=== PATIENT | female | born 1950 | race Caucasian/White ===

== ENCOUNTER 2018-11-17 09:57 | Inpatient (IN) | payer MEDICARE, MEDICAID ==
[2018-11-09 11:52] LABS: BASOPHILS % (AUTO) 0.5 % (0-1); EOSINOPHILS # (AUTO) 0.2 X10'3 (0-0.9); EOSINOPHILS % (AUTO) 3.1 % (0-6); HEMATOCRIT 42.5 % (35.0-45.0); HEMOGLOBIN 14.4 g/dl (12.0-16.0); LYMPHOCYTES # (AUTO) 2.3 X10'3 (1.1-4.8); LYMPHOCYTES % (AUTO) 35.9 % (21-51); MEAN CORPUSCULAR HEMOGLOBIN 31.1 PG (27.0-31.0); MEAN CORPUSCULAR VOLUME 91.5 FL (78-98); MEAN PLATELET VOLUME 8.2 FL (7.4-10.4); MONOCYTES # (AUTO) 0.4 X10'3 (0-0.9); MONOCYTES % (AUTO) 6.6 % (2-12); NEUTROPHILS # (AUTO) 3.4 X10'3 (1.8-7.7); NEUTROPHILS % (AUTO) 53.9 % (42-75); PLATELET COUNT 199 X10'3 (140-440); RED BLOOD COUNT 4.64 X10'6 (4.20-5.60); RED CELL DISTRIBUTION WIDTH 13.1 % (11.5-14.5); WHITE BLOOD COUNT 6.4 X10'3 (4.5-11.0)
[2018-11-09 11:53] LABS: ALANINE AMINOTRANSFERASE 17 U/L (12-78); ALBUMIN 3.2 G/DL (3.4-5.0); ALKALINE PHOSPHATASE 54 IU/L (46-116); ANION GAP 7 (8-16); ASPARTATE AMINO TRANSFERASE 17 U/L (10-37); BILIRUBIN,TOTAL 0.4 MG/DL (0.1-1.0); BLOOD UREA NITROGEN 14 MG/DL (7-18); BUN/CREATININE RATIO 17.5 (6.6-38.0); CALCIUM 8.5 MG/DL (8.5-10.1); CHLORIDE 110 MMOL/L (99-107); GLUCOSE 91 MG/DL (70-104); SODIUM 145 MMOL/L (135-145); TOTAL CARBON DIOXIDE 28.2 MMOL/L (24-32); TOTAL PROTEIN 6.4 G/DL (6.4-8.2); eGFR 72 ML/MIN
[2018-11-09 11:54] LABS: PARTIAL THROMBOPLASTIN TIME 25 SECONDS (22-32)
[~2018-11-17] VITALS: Ht 172.7 cm; Wt 100.0 kg
[2018-11-17] VITALS (11 sets, daily range): BP systolic 109–137; BP diastolic 54–86
[2018-11-17] MEDS ORDERED: nitroGLYCERIN 0.4mg SUBLingual tab SL PRN (10:20)
[2018-11-17] MEDS ORDERED: diphenhydrAMINE 25mg capsule PO PRN ×2 (10:20→15:05)
[2018-11-17] MEDS ORDERED: LORazepam 0.5 MG tablet PO PRN (10:20)
[2018-11-17] MEDS ORDERED: ESCI10TA PO (10:46)
[2018-11-17] MEDS ORDERED: CALC-331 PO (10:46)
[2018-11-17] MEDS ORDERED: CYA500T PO (10:46)
[2018-11-17] MEDS ORDERED: CITRUCEL PO (10:46)
[2018-11-17] MEDS ORDERED: MULT1TAB74 PO (10:46)
[2018-11-17] MEDS ORDERED: DENO60DI SQ (10:46)
[2018-11-17] MEDS ORDERED: UBID50TA3 PO (10:46)
[2018-11-17] MEDS ORDERED: HYDR-4353 PO (10:46)
[2018-11-17] MEDS ORDERED: ASPI-109 PO (10:46)
[2018-11-17] MEDS ORDERED: CHOL400C8 PO (10:46)
[2018-11-17] MEDS ORDERED: VITE1000C PO (10:46)
[2018-11-17] MEDS ORDERED: FERR-119 PO (10:46)
[2018-11-17] MEDS ORDERED: OMEP20CA10 PO (10:46)
[2018-11-17] MEDS: normal saline 1,000 ML IV SCH ×2 (11:30→20:20)
[2018-11-17] MEDS ORDERED: methylPREDNISolone sod succ 125mg/2ml vial IV ONE (11:35)
[2018-11-17] MEDS ORDERED: LIDOcaine 1% (10mg/ml)w/preservative injection 20ml MDV ONE (11:43)
[2018-11-17] MEDS ORDERED: fentaNYL/PF 50MCG/1 ML 2ML syringe ONE ×2 (11:43→12:24)
[2018-11-17] MEDS ORDERED: midazolam 2 mg/2 ml injection ONE (11:43)
[2018-11-17] MEDS ORDERED: iohexol 350MG/ML 100ml bottle IV ONE (11:43)
[2018-11-17] MEDS ORDERED: iohexol 350 MG/ML 50ML vial IV ONE (11:43)
[2018-11-17] MEDS ORDERED: proCHLORperazine 10 MG/2 ml inj ONE (12:14)
--- NOTE | 2018-11-17 13:21 | NUR ---
dr pollock ordered a sitter for Jaleesa Hernandez. Daughter is in room and will see that patient does not move her right leg or lift her head. I will remain in room while daughter is out if need be. Patient understands all but short term memory is very poor since stroke in 2016.
[2018-11-17] MEDS ORDERED: OXAZEpam 15mg capsule PO PRN (13:25)
[2018-11-17] MEDS ORDERED: ondansetron/PF 4mg/2ml inj IV PRN ×2 (13:25→15:05)
[2018-11-17] MEDS ORDERED: proCHLORperazine 10 MG/2 ml inj IV PRN (13:25)
[2018-11-17] MEDS ORDERED: HYDROcodone/acetaminophen 10/325mg tab PO PRN ×3 (13:25→15:00)
[2018-11-17] MEDS ORDERED: HYDROcodone/acetaminophen 5mg/325mg tablet PO PRN (13:30)
[2018-11-17] MEDS ORDERED: MESSAGE TO NURSING PO ONE ×5 (15:00→18:00)
[2018-11-17] MEDS ORDERED: NUT.TX.IMPAIRED DIGEST FXN (Ensure Clear) 237 ML PO ONE (15:00)
[2018-11-17] MEDS ORDERED: insulin glargine (Lantus) pen - multi-dose SQ PRN (15:00)
[2018-11-17] MEDS ORDERED: dextrose 50%-water 50ml dispensing syringe IV PRN (15:00)
--- NOTE | 2018-11-17 17:50 | NUR ---
I have received report from Riky JACINTO. The patient has not yet arrived to [facility] from Short Stay.
--- NOTE | 2018-11-17 17:59 | NUR ---
Problems reprioritized. Patient report given, questions answered & plan of care reviewed with MASOUD JIMENEZ [facility].
--- NOTE | 2018-11-17 18:00 | NUR ---
PATIENT TRANSFERRED TO [facility] VIA GURNEY AND MONITOR.
--- NOTE | 2018-11-17 18:24 | NUR ---
Problems reprioritized. Patient report given, questions answered & plan of care reviewed with Rudi RN.
[2018-11-17 18:34] LABS: HEMATOCRIT 43.8 % (35.0-45.0); HEMOGLOBIN 14.8 g/dl (12.0-16.0); MEAN CORPUSCULAR HEMOGLOBIN 30.8 PG (27.0-31.0); MEAN CORPUSCULAR HGB CONC 33.7 g/dL (33.0-36.5); MEAN CORPUSCULAR VOLUME 91.3 FL (78-98); PLATELET COUNT 194 X10'3 (140-440); RED CELL DISTRIBUTION WIDTH 13.3 % (11.5-14.5); WHITE BLOOD COUNT 7.9 X10'3 (4.5-11.0)
[2018-11-17 18:43] LABS: HEMOGLOBIN A1C 5.5 % (4.5-6.2)
[2018-11-17 18:45] LABS: ANION GAP 10 (8-16); BLOOD UREA NITROGEN 13 MG/DL (7-18); BUN/CREATININE RATIO 16.3 (6.6-38.0); CALCIUM 8.5 MG/DL (8.5-10.1); CHLORIDE 108 MMOL/L (99-107); GLUCOSE 182 MG/DL (70-104); POTASSIUM 3.8 MMOL/L (3.5-5.1); SODIUM 140 MMOL/L (135-145); TOTAL CARBON DIOXIDE 21.9 MMOL/L (24-32); eGFR 72 ML/MIN
[2018-11-17 18:48] LABS: PARTIAL THROMBOPLASTIN TIME 25 SECONDS (22-32)
[2018-11-17] MEDS: pantoprazole 40mg Tablet.DR PO SCH (19:57)
[2018-11-17] MEDS: metoprolol tartrate 12.5mg (1/2 tablet) PO SCH (20:00)
[2018-11-17] MEDS ORDERED: non-formulary drug (Omeprazole 1 CAP) PO SCH (20:00)
[2018-11-17 22:10] LABS: ABG BASE EXCESS -3.2 mmol/L (-2.0-3.0); ABG HCO3 21.2 mmol/L (22.0-26.0); ABG OXYGEN SATURATION 91.3 % (95-98); ABG PCO2 (T) 36.4 mmHg (32.0-45.0); ABG PH (T) 7.383 (7.350-7.450); ABG PO2 (T) 61.2 mmHg (83-108); ALLEN'S TEST Positive; FCOHb 0.9 % (0.5-1.5); FMetHb 0.2 % (0.3-1.12); FO2Hb 90.3 % (94-100); RESPIRATORY RATE (OBSERVED) 16 b/min; TOTAL HEMOGLOBIN 15.2 G/dl (12.0-16.0)
[2018-11-18] VITALS (17 sets, daily range): BP systolic 100–152; BP diastolic 52–82
[2018-11-18 04:03] LABS: BASOPHILS % (AUTO) 0 % (0-1); EOSINOPHILS % (AUTO) 0 % (0-6); HEMATOCRIT 42.8 % (35.0-45.0); HEMOGLOBIN 14.4 g/dl (12.0-16.0); LYMPHOCYTES # (AUTO) 1.6 X10'3 (1.1-4.8); LYMPHOCYTES % (AUTO) 10.2 % (21-51); MEAN CORPUSCULAR HEMOGLOBIN 30.6 PG (27.0-31.0); MEAN CORPUSCULAR HGB CONC 33.8 g/dL (33.0-36.5); MEAN CORPUSCULAR VOLUME 90.6 FL (78-98); MONOCYTES # (AUTO) 0.9 X10'3 (0-0.9); MONOCYTES % (AUTO) 5.5 % (2-12); NEUTROPHILS % (AUTO) 84.3 % (42-75); PLATELET COUNT 186 X10'3 (140-440); RED BLOOD COUNT 4.73 X10'6 (4.20-5.60); RED CELL DISTRIBUTION WIDTH 13.1 % (11.5-14.5); WHITE BLOOD COUNT 15.4 X10'3 (4.5-11.0)
[2018-11-18] MEDS: mupirocin 2% nasal ointment 1gm UD NS SCH ×3 (04:07→20:10)
[2018-11-18 04:20] LABS: ANION GAP 9 (8-16); BLOOD UREA NITROGEN 15 MG/DL (7-18); BUN/CREATININE RATIO 25.9 (6.6-38.0); CALCIUM 8.6 MG/DL (8.5-10.1); CHLORIDE 109 MMOL/L (99-107); CREATININE 0.58 MG/DL (0.40-0.90); GLUCOSE 106 MG/DL (70-104); POTASSIUM 3.7 MMOL/L (3.5-5.1); SODIUM 140 MMOL/L (135-145); TOTAL CARBON DIOXIDE 21.8 MMOL/L (24-32); eGFR > 90 ML/MIN
[2018-11-18] MEDS ORDERED: gabapentin 400mg capsule PO ONE (06:00)
[2018-11-18] MEDS: insulin regular, human 100 UNIT in normal saline 100ml IV soln 100 ML IV SCH ×2 (06:00)
[2018-11-18] MEDS ORDERED: vancomycin/NS 1 GM ADD-VANTAGE 250 ML IV ONE (06:00)
[2018-11-18] MEDS ORDERED: cefazolin/dext.iso 2gm/50ml 50 ML IV ONE (06:00)
--- NOTE | 2018-11-18 06:00 | NUR ---
Patient in room MED 307. I have received report from Rudi Calzada RN and had the opportunity to ask questions and assume patient care.
[2018-11-18] MEDS ORDERED: ROPIVAcaine 0.5% (5mg/ml) 30ml vial ONE (07:54)
[2018-11-18] MEDS ORDERED: acetaminophen 1,000mg/100ml IV 100 ML IV ONE (07:54)
[2018-11-18] MEDS: pantoprazole 40mg Tablet.DR PO SCH (08:00)
[2018-11-18] MEDS ORDERED: heparin 10,000 units/1 ML INJ ONE ×2 (08:00)
[2018-11-18] MEDS ORDERED: LORazepam 2 mg/ml vial IV ONE (08:00)
[2018-11-18] MEDS ORDERED: aminocaproic acid 250 MG/1 ML inj. ONE ×2 (08:00→09:56)
[2018-11-18] MEDS ORDERED: non-formulary drug (Multivitamins 1 TAB) PO SCH (08:00)
[2018-11-18] MEDS: metoprolol tartrate 12.5mg (1/2 tablet) PO SCH ×2 (08:00→08:33)
[2018-11-18] MEDS ORDERED: phenylephrine 10mg/ml inj. ONE (08:00)
[2018-11-18] MEDS ORDERED: citalopram 20mg tablet PO SCH ×2 (08:00)
[2018-11-18] MEDS: multivitamins, therapeutics tablet PO SCH (08:00)
[2018-11-18] MEDS ORDERED: potassium Cl 2 mEq/ml inj IV ONE (08:00)
[2018-11-18] MEDS ORDERED: famotidine 20mg tablet PO ONE (08:00)
[2018-11-18] MEDS ORDERED: LIDOcaine 2% (20 mg/ml) 5ml cardiac syringe ONE (08:00)
[2018-11-18] MEDS ORDERED: sodium bicarbonate (8.4%) 1 mEq/ml syringe ONE (08:00)
[2018-11-18] MEDS: aripiprazole 5mg tablet PO SCH (08:00)
[2018-11-18] MEDS ORDERED: calcium chloride 100 MG/1 ML inj IV ONE (08:00)
[2018-11-18] MEDS ORDERED: magnesium 1 GM/2 ML inj ONE (08:00)
[2018-11-18] MEDS ORDERED: papaverine 30 mg/ml 2ml inj. ONE (08:00)
[2018-11-18] MEDS ORDERED: methylPREDNISolone sod succ 1000mg vial ONE (08:00)
[2018-11-18] MEDS ORDERED: heparin 1,000 units/ml 10ml inj ONE (08:00)
[2018-11-18] MEDS ORDERED: albumin (human) 25% 100 ML IV solution IV ONE (08:00)
[2018-11-18] MEDS ORDERED: aspirin 325mg tablet PO SCH (08:30)
[2018-11-18] MEDS ORDERED: propofol inj 20 ML IV ONE (09:12)
[2018-11-18] MEDS ORDERED: midazolam 2 mg/2 ml injection ONE ×2 (09:12)
[2018-11-18] MEDS ORDERED: SUFENTANIL CITRATE 50 MCG/ML 2ml ampule IV ONE (09:12)
[2018-11-18] MEDS ORDERED: pancuronium br 1mg/ml inj IV ONE (09:13)
--- NOTE | 2018-11-18 09:37 | NUR ---
Pt. heading to OR.
[2018-11-18] MEDS ORDERED: [UNRECOGNIZED DRUG - OTHER] IV ONE (09:56)
[2018-11-18] MEDS ORDERED: sevoflurane 250ml liquid IH ONE (09:56)
[2018-11-18] MEDS ORDERED: LIDOcaine 1%/PF 5ML 10 MG/ML VIAL ONE (09:56)
[2018-11-18] MEDS ORDERED: nitroGLYCERIN in D5W 50mg/250ml (Tridil) infusion IV ONE (09:56)
[2018-11-18] MEDS ORDERED: protamine sulf. 10mg/ml inj. IV ONE (09:56)
[2018-11-18 10:26] LABS: ABG BASE EXCESS -4.8 mmol/L (-2.0-3.0); ABG HCO3 21.5 mmol/L (22.0-26.0); ABG OXYGEN SATURATION 99.5 % (95-98); ABG PCO2 44.1 mmHg (35.0-45.0); ABG PH 7.305 (7.350-7.450); ABG PO2 294.9 mmHg (60.0-100.0); CL (ABG) 109 mmol/L (99-107); FMetHb 0.3 % (0.3-1.12); FO2Hb 98.2 % (94-100); GLUCOSE (ABG) 107 mg/dl (70-105); K (ABG) 3.7 mmol/L (3.3-5.1); NA (ABG) 138 mmol/L (135-145); TOTAL HEMOGLOBIN 14.9 G/dl (12.0-16.0)
[2018-11-18] MEDS ORDERED: ePHEDrine 50MG/ML INJ. ONE (10:30)
[2018-11-18] MEDS ORDERED: heparin 10,000 units/1 ML INJ IR ONE (10:48)
[2018-11-18] MEDS ORDERED: papaverine 30 mg/ml 2ml inj. IA ONE (10:49)
[2018-11-18 11:46] LABS: ABG BASE EXCESS -4.9 mmol/L (-2.0-3.0); ABG OXYGEN SATURATION 99.4 % (95-98); ABG PCO2 31.1 mmHg (35.0-45.0); ABG PH 7.403 (7.350-7.450); ABG PO2 499.1 mmHg (60.0-100.0); CL (ABG) 107 mmol/L (99-107); FCOHb 0.3 % (0.5-1.5); FMetHb 0.4 % (0.3-1.12); FO2Hb 98.7 % (94-100); GLUCOSE (ABG) 108 mg/dl (70-105); IONIZED CA (ABG) 1.02 mmol/L (1.03-1.32); K (ABG) 5.6 mmol/L (3.3-5.1); NA (ABG) 132 mmol/L (135-145); TOTAL HEMOGLOBIN 11.2 G/dl (12.0-16.0)
[2018-11-18 12:06] LABS: ABG BASE EXCESS VENOUS -0.3 mmol/L; ABG HCO3 VENOUS 24.7 mmol/L; ABG PCO2 VENOUS 42.3 mmHg; ABG PO2 VENOUS 56.7 mmHg; CL (ABG) 107 mmol/L (99-107); FCOHb VENOUS 0.6 %; FHHb VENOUS 10.2 %; FMetHb VENOUS 0.3 %; FO2Hb VENOUS 88.9 %; GLUCOSE (ABG) 129 mg/dl (70-105); IONIZED CA (ABG) 0.96 mmol/L (1.03-1.32); K (ABG) 5.3 mmol/L (3.3-5.1); NA (ABG) 135 mmol/L (135-145); TOTAL HEMOGLOBIN 10.5 G/dl (12.0-16.0)
[2018-11-18 12:21] LABS: ABG BASE EXCESS 0.3 mmol/L (-2.0-3.0); ABG HCO3 24.8 mmol/L (22.0-26.0); ABG OXYGEN SATURATION 99.2 % (95-98); ABG PCO2 39.4 mmHg (35.0-45.0); ABG PH 7.416 (7.350-7.450); ABG PO2 469.4 mmHg (60.0-100.0); CL (ABG) 105 mmol/L (99-107); FCOHb 0.3 % (0.5-1.5); FMetHb 0.5 % (0.3-1.12); FO2Hb 98.4 % (94-100); GLUCOSE (ABG) 120 mg/dl (70-105); IONIZED CA (ABG) 1.34 mmol/L (1.03-1.32); K (ABG) 4.8 mmol/L (3.3-5.1); NA (ABG) 132 mmol/L (135-145); TOTAL HEMOGLOBIN 9.5 G/dl (12.0-16.0)
[2018-11-18] MEDS ORDERED: fentaNYL /PF 50mcg/ml 5ml ampule ONE (12:27)
[2018-11-18 12:40] LABS: ABG BASE EXCESS VENOUS 0.8 mmol/L; ABG HCO3 VENOUS 25.5 mmol/L; ABG PCO2 VENOUS 40.9 mmHg; ABG PO2 VENOUS 38.7 mmHg; CL (ABG) 105 mmol/L (99-107); FCOHb VENOUS 0.8 %; FHHb VENOUS 23.1 %; FMetHb VENOUS 0.5 %; FO2Hb VENOUS 75.6 %; GLUCOSE (ABG) 139 mg/dl (70-105); IONIZED CA (ABG) 1.16 mmol/L (1.03-1.32); K (ABG) 4.9 mmol/L (3.3-5.1); NA (ABG) 133 mmol/L (135-145); TOTAL HEMOGLOBIN 10.2 G/dl (12.0-16.0)
[2018-11-18] MEDS ORDERED: nitroGLYCERIN-Tridil 50MG/D5W 250 ML IV PRN (13:23)
[2018-11-18] MEDS ORDERED: DOPamine 400mg/D5W 250ml 250 ML IV PRN (13:23)
[2018-11-18] MEDS ORDERED: magnesium hydroxide 30ml (MOM) UD suspension PO PRN (13:25)
[2018-11-18] MEDS ORDERED: metoclopramide 5 mg/ml inj IV PRN (13:25)
[2018-11-18] MEDS ORDERED: ondansetron/PF 4mg/2ml inj IV PRN (13:25)
[2018-11-18] MEDS ORDERED: normal saline 250ml IV soln 250 ML IV PRN (13:25)
[2018-11-18] MEDS ORDERED: albumin (Human) 5% 250ml 250 ML IV PRN (13:25)
[2018-11-18] MEDS ORDERED: potassium Cl 20 mEq SR tablet PO PRN (13:25)
[2018-11-18] MEDS ORDERED: sodium phosphate inj. 15 MMOL in dextrose 5%-water 150 ML IV PRN (13:25)
[2018-11-18] MEDS ORDERED: dextrose 50%-water 50ml dispensing syringe IV PRN (13:25)
[2018-11-18] MEDS ORDERED: magnesium 4gm in 100ml NS 100 ML IV PRN (13:25)
[2018-11-18] MEDS ORDERED: magnesium 2GM in 50ml NS 50 ML IV PRN (13:25)
[2018-11-18] MEDS ORDERED: sodium phosphate inj. 30 MMOL in dextrose 5%-water 250 ML IV PRN (13:25)
[2018-11-18] MEDS ORDERED: morphine 4 MG/ML inj SYRINge IV PRN ×2 (13:25)
[2018-11-18] MEDS ORDERED: insulin regular, human inj. 100 UNITS in normal saline 100ml IV soln 100 ML IV SCH ×2 (13:25)
[2018-11-18] MEDS ORDERED: pantoprazole 40 MG vial IV ONE (13:25)
[2018-11-18] MEDS ORDERED: Neutra Phos packet PO PRN (13:25)
[2018-11-18] MEDS ORDERED: acetaminophen 325mg tablet PO PRN (13:25)
[2018-11-18] MEDS ORDERED: nitroPRUSSIDE SODIUM in NS 100 ML IV PRN (13:26)
--- NOTE | 2018-11-18 13:30 | NUR ---
Received to room 2008, accompanied by Shikha Sharma and surgical crew. Placed on ventilator, to cardiac cath technician, arterial line and PA line pressure monitored. Chest tubes to suction at 20 cm. Green cath to gravity drainage. Dressings are dry and intact. See assessment record. All vasoactive drugs are infusing via central line.
[2018-11-18 13:46] LABS: ABG BASE EXCESS -2.1 mmol/L (-2.0-3.0); ABG HCO3 23.1 mmol/L (22.0-26.0); ABG PCO2 (T) 41.1 mmHg (32.0-45.0); ABG PH (T) 7.367 (7.350-7.450); ABG PO2 (T) 67.1 mmHg (83-108); FCOHb 0.6 % (0.5-1.5); FMetHb 0.2 % (0.3-1.12); FO2Hb 92.3 % (94-100); MINUTE VOLUME 6 L/min; PEEP 5 cm H2O; RESPIRATORY RATE 10 b/min; RESPIRATORY RATE (OBSERVED) 10 b/min; TIDAL VOLUME 600 mL; TOTAL HEMOGLOBIN 14.5 G/dl (12.0-16.0)
[2018-11-18 14:07] LABS: BASOPHILS % (AUTO) 0 % (0-1); EOSINOPHILS # (AUTO) 0.1 X10'3 (0-0.9); EOSINOPHILS % (AUTO) 0.3 % (0-6); HEMATOCRIT 40.8 % (35.0-45.0); HEMOGLOBIN 13.7 g/dl (12.0-16.0); INR 1.2 INR; LYMPHOCYTES # (AUTO) 1.4 X10'3 (1.1-4.8); MEAN CORPUSCULAR HEMOGLOBIN 30.5 PG (27.0-31.0); MEAN CORPUSCULAR HGB CONC 33.7 g/dL (33.0-36.5); MEAN CORPUSCULAR VOLUME 90.7 FL (78-98); MONOCYTES # (AUTO) 1.1 X10'3 (0-0.9); MONOCYTES % (AUTO) 5.8 % (2-12); NEUTROPHILS # (AUTO) 16.8 X10'3 (1.8-7.7); NEUTROPHILS % (AUTO) 86.9 % (42-75); PARTIAL THROMBOPLASTIN TIME 26 SECONDS (22-32); PLATELET COUNT 145 X10'3 (140-440); RED CELL DISTRIBUTION WIDTH 13.3 % (11.5-14.5); WHITE BLOOD COUNT 19.3 X10'3 (4.5-11.0)
[2018-11-18] MEDS: sodium chloride 0.45% 1,000 ML IV SCH (14:07)
[2018-11-18 14:11] LABS: ALANINE AMINOTRANSFERASE 32 U/L (12-78); ALBUMIN 3.2 G/DL (3.4-5.0); ALBUMIN/GLOBULIN RATIO 1.7 (1.1-1.5); ALKALINE PHOSPHATASE 36 IU/L (46-116); ANION GAP 9 (8-16); ASPARTATE AMINO TRANSFERASE 48 U/L (10-37); BILIRUBIN,TOTAL 0.8 MG/DL (0.1-1.0); BLOOD UREA NITROGEN 11 MG/DL (7-18); CALCIUM 8.7 MG/DL (8.5-10.1); CHLORIDE 110 MMOL/L (99-107); CREATININE 0.61 MG/DL (0.40-0.90); GLUCOSE 143 MG/DL (70-104); MAGNESIUM 3.4 MG/DL (1.5-2.4); PHOSPHORUS 2.6 MG/DL (2.3-4.5); POTASSIUM 4.8 MMOL/L (3.5-5.1); SODIUM 143 MMOL/L (135-145); TOTAL CARBON DIOXIDE 23.6 MMOL/L (24-32); TOTAL PROTEIN 5.1 G/DL (6.4-8.2); eGFR > 90 ML/MIN
[2018-11-18 14:44] LABS: NEUTROPHILS % (MANUAL) 90 % (42-75); TOTAL CELLS COUNTED 100
[2018-11-18 14:45] LABS: LYMPHOCYTES % (MANUAL) 4 % (21-51); PLATELET ESTIMATE NORMAL
--- NOTE | 2018-11-18 15:40 | NUR ---
Nutrition consult: Pt s/p CABG x2, currently intubated. Will continue to follow and provide nutrition education s/p extubation prior to d/c once pt alert and oriented. Per diet office family requesting bernard Sascha for pt, will monitor appropriateness of ONS s/p extubation with diet advancement. Addendum: 11/18/18 at [address] Amended: Links added.
[2018-11-18] MEDS: ceFAZolin 1GM/D5W- ADD-VANTAGE 50 ML IV SCH ×2 (16:18→23:28)
[2018-11-18] MEDS: insulin Lispro (HumaLOG) vial - multi-dose SQ SCH (16:21)
--- NOTE | 2018-11-18 18:30 | NUR ---
Problems reprioritized. Patient report given, questions answered & plan of care reviewed with Princess JACINTO.
[2018-11-18] MEDS: docusate sod 100mg capsule PO SCH (20:00)
[2018-11-18] MEDS: vancomycin/NS 1 GM ADD-VANTAGE 250 ML IV SCH (20:10)
[2018-11-18] MEDS: gabapentin 300mg capsule PO SCH (20:24)
[2018-11-18 21:41] LABS: BASOPHILS % (AUTO) 0 % (0-1); EOSINOPHILS % (AUTO) 0 % (0-6); HEMATOCRIT 41.5 % (35.0-45.0); HEMOGLOBIN 13.8 g/dl (12.0-16.0); LYMPHOCYTES # (AUTO) 0.9 X10'3 (1.1-4.8); LYMPHOCYTES % (AUTO) 5.3 % (21-51); MEAN CORPUSCULAR HEMOGLOBIN 30.4 PG (27.0-31.0); MEAN CORPUSCULAR HGB CONC 33.2 g/dL (33.0-36.5); MEAN CORPUSCULAR VOLUME 91.6 FL (78-98); MEAN PLATELET VOLUME 8.2 FL (7.4-10.4); MONOCYTES # (AUTO) 0.8 X10'3 (0-0.9); MONOCYTES % (AUTO) 4.8 % (2-12); NEUTROPHILS # (AUTO) 15.5 X10'3 (1.8-7.7); NEUTROPHILS % (AUTO) 89.9 % (42-75); PLATELET COUNT 165 X10'3 (140-440); RED BLOOD COUNT 4.53 X10'6 (4.20-5.60); WHITE BLOOD COUNT 17.2 X10'3 (4.5-11.0)
[2018-11-18 21:44] LABS: ALBUMIN 3.2 G/DL (3.4-5.0); ANION GAP 11 (8-16); BLOOD UREA NITROGEN 15 MG/DL (7-18); BUN/CREATININE RATIO 17.4 (6.6-38.0); CALCIUM 7.8 MG/DL (8.5-10.1); CHLORIDE 112 MMOL/L (99-107); CREATININE 0.86 MG/DL (0.40-0.90); GLUCOSE 186 MG/DL (70-104); MAGNESIUM 2.7 MG/DL (1.5-2.4); PHOSPHORUS 2.8 MG/DL (2.3-4.5); POTASSIUM 3.9 MMOL/L (3.5-5.1); SODIUM 147 MMOL/L (135-145); TOTAL CARBON DIOXIDE 24.3 MMOL/L (24-32); eGFR 66 ML/MIN
[2018-11-18] MEDS: potassium Cl 20mEq/100mL bag 100 ML IV PRN (22:17)
--- NOTE | 2018-11-18 22:19 | NUR ---
1830..Patient in room CICU 2008. I have received report from Josesito JACINTO and had the opportunity to ask questions and assume patient care.
--- NOTE | 2018-11-18 22:20 | NUR ---
2000..Assessment as noted, medicated for nausea with Zofran as ordered with good effect.
--- NOTE | 2018-11-18 22:21 | NUR ---
2030..Medicated for pain with morphine as ordered, with good effect, no further nausea.
[2018-11-18 22:31] LABS: PLATELET ESTIMATE NORMAL; TOTAL CELLS COUNTED 100
[2018-11-19] VITALS (22 sets, daily range): BP systolic 98–144; BP diastolic 42–89
[2018-11-19] MEDS: potassium Cl 20mEq/100mL bag 100 ML IV PRN (00:07)
--- NOTE | 2018-11-19 00:46 | NUR ---
0000..Resting quietly, slowly weaning vent, no other changes noted.
[2018-11-19 02:17] LABS: BASOPHILS % (AUTO) 0 % (0-1); EOSINOPHILS % (AUTO) 0 % (0-6); HEMATOCRIT 41.8 % (35.0-45.0); HEMOGLOBIN 13.9 g/dl (12.0-16.0); LYMPHOCYTES # (AUTO) 0.9 X10'3 (1.1-4.8); LYMPHOCYTES % (AUTO) 5.3 % (21-51); MEAN CORPUSCULAR HEMOGLOBIN 30.5 PG (27.0-31.0); MEAN CORPUSCULAR HGB CONC 33.3 g/dL (33.0-36.5); MEAN CORPUSCULAR VOLUME 91.7 FL (78-98); MEAN PLATELET VOLUME 8.1 FL (7.4-10.4); MONOCYTES # (AUTO) 1.1 X10'3 (0-0.9); MONOCYTES % (AUTO) 6.2 % (2-12); NEUTROPHILS # (AUTO) 15.5 X10'3 (1.8-7.7); NEUTROPHILS % (AUTO) 88.5 % (42-75); PLATELET COUNT 146 X10'3 (140-440); RED BLOOD COUNT 4.57 X10'6 (4.20-5.60); RED CELL DISTRIBUTION WIDTH 13.3 % (11.5-14.5); WHITE BLOOD COUNT 17.5 X10'3 (4.5-11.0)
[2018-11-19 02:26] LABS: INR 1.1 INR; PARTIAL THROMBOPLASTIN TIME 23 SECONDS (22-32)
[2018-11-19 02:29] LABS: ALANINE AMINOTRANSFERASE 45 U/L (12-78); ALBUMIN 3.1 G/DL (3.4-5.0); ALBUMIN/GLOBULIN RATIO 1.3 (1.1-1.5); ALKALINE PHOSPHATASE 34 IU/L (46-116); ANION GAP 6 (8-16); ASPARTATE AMINO TRANSFERASE 49 U/L (10-37); BILIRUBIN,TOTAL 0.5 MG/DL (0.1-1.0); BLOOD UREA NITROGEN 17 MG/DL (7-18); BUN/CREATININE RATIO 26.2 (6.6-38.0); CALCIUM 7.8 MG/DL (8.5-10.1); CHLORIDE 113 MMOL/L (99-107); CREATININE 0.65 MG/DL (0.40-0.90); GLUCOSE 125 MG/DL (70-104); MAGNESIUM 2.6 MG/DL (1.5-2.4); PHOSPHORUS 1.8 MG/DL (2.3-4.5); SODIUM 144 MMOL/L (135-145); TOTAL CARBON DIOXIDE 25.3 MMOL/L (24-32); TOTAL PROTEIN 5.5 G/DL (6.4-8.2); eGFR > 90 ML/MIN
[2018-11-19 03:56] LABS: ABG BASE EXCESS -1.4 mmol/L (-2.0-3.0); ABG HCO3 22.5 mmol/L (22.0-26.0); ABG OXYGEN SATURATION 93.7 % (95-98); ABG PCO2 (T) 35.7 mmHg (32.0-45.0); ABG PH (T) 7.418 (7.350-7.450); ABG PO2 (T) 68.8 mmHg (83-108); FCOHb 0.3 % (0.5-1.5); FMetHb 0.2 % (0.3-1.12); FO2Hb 93.2 % (94-100); MINUTE VOLUME 8 L/min; PATIENT TEMPERATURE 37.2; PEEP 5 cm H2O; RESPIRATORY RATE (OBSERVED) 19 b/min; TOTAL HEMOGLOBIN 14.6 G/dl (12.0-16.0)
[2018-11-19] MEDS: HYDROcodone/acetaminophen 10/325mg tab PO PRN ×4 (04:09→17:34)
--- NOTE | 2018-11-19 04:18 | NUR ---
0415..Passed weaning parameters,extubated to nasal cannula 6l, no wheezing or stridor , tolerated. Complained of incisional pain 8\10, medicated with norco as per MD orders, no other changes noted.
--- NOTE | 2018-11-19 06:23 | NUR ---
2020..Problems reprioritized. Patient report given, questions answered & plan of care reviewed with Neida JACINTO.
--- NOTE | 2018-11-19 06:30 | NUR ---
Patient in room CICU 2008. I have received report from Princess Calzada RN and had the opportunity to ask questions and assume patient care.
[2018-11-19] MEDS: vancomycin/NS 1 GM ADD-VANTAGE 250 ML IV SCH ×2 (08:55→20:12)
[2018-11-19] MEDS: aspirin 325mg tablet, delayed-release (Ecotrin) PO SCH (08:55)
[2018-11-19] MEDS: ceFAZolin 1GM/D5W- ADD-VANTAGE 50 ML IV SCH ×2 (08:55→16:24)
[2018-11-19] MEDS: docusate sod 100mg capsule PO SCH ×2 (08:56→20:13)
[2018-11-19] MEDS: aripiprazole 5mg tablet PO SCH (08:56)
[2018-11-19] MEDS: gabapentin 300mg capsule PO SCH ×3 (08:56→20:12)
[2018-11-19] MEDS: atorvastatin 10mg tablet PO SCH (08:57)
[2018-11-19] MEDS: citalopram 20mg tablet PO SCH (08:57)
[2018-11-19] MEDS: insulin Lispro (HumaLOG) vial - multi-dose SQ SCH ×3 (09:00→18:00)
[2018-11-19] MEDS: metoprolol tartrate 12.5mg (1/2 tablet) PO SCH ×2 (09:07→20:13)
[2018-11-19] MEDS: multivitamins, therapeutics tablet PO SCH (09:09)
[2018-11-19] MEDS: mupirocin 2% nasal ointment 1gm UD NS SCH ×2 (11:00→20:12)
--- NOTE | 2018-11-19 11:35 | NUR ---
1115 Removed patient's swan-yamilka line and arterial line. Applied dressing per policy. Clean dressing applied aseptically to central line.
[2018-11-19] MEDS: insulin regular, human 100 UNIT in normal saline 100ml IV soln 100 ML IV SCH ×2 (15:20)
--- NOTE | 2018-11-19 18:26 | NUR ---
Problems reprioritized. Patient report given, questions answered & plan of care reviewed with Felicitas Ibarra RN.
--- NOTE | 2018-11-19 18:30 | NUR ---
Patient in room CICU 2008. I have received report and had the opportunity to ask questions and assume patient care.
--- NOTE | 2018-11-19 19:00 | NUR ---
pt becomes confused/forgetful at times. pt will wake up and pull on lines and gown. pt will also try to use her arms to push herself up i bed. pt needs many reminders to adhere to sternal precautions. will continue to monitor
[2018-11-20] VITALS (24 sets, daily range): BP systolic 87–158; BP diastolic 46–79
[2018-11-20] MEDS: ceFAZolin 1GM/D5W- ADD-VANTAGE 50 ML IV SCH (00:06)
[2018-11-20 03:42] LABS: BASOPHILS % (AUTO) 0 % (0-1); EOSINOPHILS % (AUTO) 0.1 % (0-6); HEMATOCRIT 37.4 % (35.0-45.0); HEMOGLOBIN 12.6 g/dl (12.0-16.0); LYMPHOCYTES # (AUTO) 2.8 X10'3 (1.1-4.8); LYMPHOCYTES % (AUTO) 13.8 % (21-51); MEAN CORPUSCULAR HEMOGLOBIN 30.9 PG (27.0-31.0); MEAN CORPUSCULAR HGB CONC 33.7 g/dL (33.0-36.5); MEAN CORPUSCULAR VOLUME 91.8 FL (78-98); MEAN PLATELET VOLUME 8.2 FL (7.4-10.4); MONOCYTES # (AUTO) 1.8 X10'3 (0-0.9); MONOCYTES % (AUTO) 8.7 % (2-12); NEUTROPHILS # (AUTO) 15.7 X10'3 (1.8-7.7); NEUTROPHILS % (AUTO) 77.4 % (42-75); PLATELET COUNT 112 X10'3 (140-440); RED BLOOD COUNT 4.07 X10'6 (4.20-5.60); RED CELL DISTRIBUTION WIDTH 13.4 % (11.5-14.5); WHITE BLOOD COUNT 20.3 X10'3 (4.5-11.0)
[2018-11-20 03:45] LABS: ALBUMIN 2.8 G/DL (3.4-5.0); ANION GAP 7 (8-16); BLOOD UREA NITROGEN 18 MG/DL (7-18); BUN/CREATININE RATIO 29.5 (6.6-38.0); CALCIUM 7.5 MG/DL (8.5-10.1); CHLORIDE 108 MMOL/L (99-107); CREATININE 0.61 MG/DL (0.40-0.90); GLUCOSE 122 MG/DL (70-104); MAGNESIUM 2.4 MG/DL (1.5-2.4); PHOSPHORUS 2.3 MG/DL (2.3-4.5); POTASSIUM 4.6 MMOL/L (3.5-5.1); SODIUM 140 MMOL/L (135-145); TOTAL CARBON DIOXIDE 25.4 MMOL/L (24-32); eGFR > 90 ML/MIN
--- NOTE | 2018-11-20 06:30 | NUR ---
Patient in room CICU 2008. I have received report from OPHELIA Polk and had the opportunity to ask questions and assume patient care.
[2018-11-20] MEDS: aspirin 325mg tablet, delayed-release (Ecotrin) PO SCH (08:34)
[2018-11-20] MEDS: docusate sod 100mg capsule PO SCH ×2 (08:34→19:27)
[2018-11-20] MEDS: mupirocin 2% nasal ointment 1gm UD NS SCH (08:34)
[2018-11-20] MEDS: citalopram 20mg tablet PO SCH (08:34)
[2018-11-20] MEDS: atorvastatin 10mg tablet PO SCH (08:35)
[2018-11-20] MEDS: metoprolol tartrate 12.5mg (1/2 tablet) PO SCH ×2 (08:35→19:27)
[2018-11-20] MEDS: multivitamins, therapeutics tablet PO SCH (08:35)
[2018-11-20] MEDS: aripiprazole 5mg tablet PO SCH (08:35)
[2018-11-20] MEDS: gabapentin 300mg capsule PO SCH ×2 (08:35→13:00)
[2018-11-20] MEDS: pantoprazole 40mg Tablet.DR PO SCH (08:35)
[2018-11-20] MEDS: HYDROcodone/acetaminophen 10/325mg tab PO PRN ×3 (08:37→19:31)
[2018-11-20] MEDS: insulin Lispro (HumaLOG) vial - multi-dose SQ SCH ×3 (09:00→18:00)
--- NOTE | 2018-11-20 09:00 | NUR ---
pt is awake and alert, forgetful at times, reorient easy. CTs removed by ARBEN Mcmahon. c/o discomfort, pain medication given for pain relief per MD order. OOB for meals. ambulate with PT x1. updated family on plan of care.
[2018-11-20] MEDS: sodium chloride 0.45% 1,000 ML IV SCH (13:23)
--- NOTE | 2018-11-20 18:20 | NUR ---
Patient in room CICU 2008. I have received report from OPHELIA Hobbs and had the opportunity to ask questions and assume patient care. Patient is resting at time of report, awakens easily, is alert and oriented, in no distress at this time. Patient has right CL that is saline locked and 18 ga PIV to left forearm saline locked. Green catheter in place. Patient reminded of using sternal precautions. Will continue to monitor.
--- NOTE | 2018-11-20 18:24 | NUR ---
Problems reprioritized. Patient report given, questions answered & plan of care reviewed with Ruby Kebede.
[2018-11-21] VITALS (21 sets, daily range): BP systolic 91–135; BP diastolic 31–70
[2018-11-21] MEDS: insulin regular, human 100 UNIT in normal saline 100ml IV soln 100 ML IV SCH ×2 (00:03)
[2018-11-21] MEDS: HYDROcodone/acetaminophen 10/325mg tab PO PRN ×5 (02:23→22:58)
--- NOTE | 2018-11-21 03:00 | NUR ---
[id number] Patient requires frequent reminders for using sternal precautions. Patient is impulsive and forgetful at times, reorients well. Patient pulled on dressing over central line while sleeping - dressing replaced. Patient continues to remove nasal cannula while sleeping with oxygen saturation decreasing to 89%. Patient reminded to keep her oxygen on. Will continue to monitor.
[2018-11-21 03:16] LABS: BASOPHILS % (AUTO) 0.1 % (0-1); EOSINOPHILS # (AUTO) 0.2 X10'3 (0-0.9); EOSINOPHILS % (AUTO) 1.7 % (0-6); HEMATOCRIT 34.4 % (35.0-45.0); HEMOGLOBIN 11.6 g/dl (12.0-16.0); LYMPHOCYTES # (AUTO) 2.8 X10'3 (1.1-4.8); LYMPHOCYTES % (AUTO) 21.5 % (21-51); MEAN CORPUSCULAR HEMOGLOBIN 31.2 PG (27.0-31.0); MEAN CORPUSCULAR HGB CONC 33.7 g/dL (33.0-36.5); MEAN CORPUSCULAR VOLUME 92.5 FL (78-98); MEAN PLATELET VOLUME 8.7 FL (7.4-10.4); MONOCYTES # (AUTO) 0.9 X10'3 (0-0.9); MONOCYTES % (AUTO) 6.8 % (2-12); NEUTROPHILS # (AUTO) 9.1 X10'3 (1.8-7.7); NEUTROPHILS % (AUTO) 69.9 % (42-75); PLATELET COUNT 95 X10'3 (140-440); RED BLOOD COUNT 3.71 X10'6 (4.20-5.60); RED CELL DISTRIBUTION WIDTH 13.3 % (11.5-14.5)
[2018-11-21 03:26] LABS: ALBUMIN 2.5 G/DL (3.4-5.0); ANION GAP 3 (8-16); BLOOD UREA NITROGEN 16 MG/DL (7-18); BUN/CREATININE RATIO 28.1 (6.6-38.0); CALCIUM 7.6 MG/DL (8.5-10.1); CHLORIDE 108 MMOL/L (99-107); CREATININE 0.57 MG/DL (0.40-0.90); GLUCOSE 97 MG/DL (70-104); MAGNESIUM 2.2 MG/DL (1.5-2.4); PHOSPHORUS 1.5 MG/DL (2.3-4.5); POTASSIUM 4.2 MMOL/L (3.5-5.1); SODIUM 139 MMOL/L (135-145); TOTAL CARBON DIOXIDE 27.7 MMOL/L (24-32); eGFR > 90 ML/MIN
[2018-11-21 05:11] LABS: ACTIVATED CLOTTING TIME 116 SEC (101-148)
[2018-11-21 05:11] LABS: ACT @ 1.70 U 232 SEC (193-297); ACT @ 2.84 U 304 SEC (260-420); BASELINE ACT 121 SEC (101-148)
--- NOTE | 2018-11-21 05:52 | NUR ---
Patient coughing, needing reminder to use her pillow for sternal precautions. Pillow placed on patients chest and had patient demonstrate sternal precautions. She was able to do them without issue when prompted. Will continue to monitor.
--- NOTE | 2018-11-21 06:28 | NUR ---
Problems reprioritized. Patient report given, questions answered & plan of care reviewed with OPHELIA Augustine.
--- NOTE | 2018-11-21 06:42 | NUR ---
Patient in room CICU 2008. I have received report from OPHELIA Kebede and had the opportunity to ask questions and assume patient care.
[2018-11-21] MEDS ORDERED: potassium Cl 20 mEq SR tablet PO PRN ×2 (07:05)
[2018-11-21] MEDS ORDERED: magnesium Cl slow-release 64mg tablet PO PRN (07:05)
[2018-11-21] MEDS ORDERED: magnesium 2GM in 50ml NS 50 ML IV PRN (07:05)
[2018-11-21] MEDS ORDERED: potassium Cl 40MEQ/NS 500ml 500 ML IV PRN ×2 (07:05)
[2018-11-21] MEDS ORDERED: magnesium 4gm in 100ml NS 100 ML IV PRN (07:05)
[2018-11-21] MEDS: metoprolol tartrate 12.5mg (1/2 tablet) PO SCH ×2 (07:46→20:57)
[2018-11-21] MEDS: multivitamins, therapeutics tablet PO SCH (07:47)
[2018-11-21] MEDS: aspirin 325mg tablet, delayed-release (Ecotrin) PO SCH (07:47)
[2018-11-21] MEDS: docusate sod 100mg capsule PO SCH ×2 (07:47→20:58)
[2018-11-21] MEDS: magnesium Cl slow-release 64mg tablet PO SCH ×3 (07:47→20:00)
[2018-11-21] MEDS: citalopram 20mg tablet PO SCH (07:47)
[2018-11-21] MEDS: atorvastatin 10mg tablet PO SCH (07:47)
[2018-11-21] MEDS: pantoprazole 40mg Tablet.DR PO SCH (07:48)
[2018-11-21] MEDS: aripiprazole 5mg tablet PO SCH (07:48)
[2018-11-21] MEDS: potassium Cl 20 mEq SR tablet PO SCH ×3 (07:49→20:00)
[2018-11-21] MEDS: K and/or MAG REPLACEMENT MC SCH (08:00)
--- NOTE | 2018-11-21 16:56 | NUR ---
Report called to OPHELIA Lozano
--- NOTE | 2018-11-21 17:28 | NUR ---
Transferred to room 315 via wheelchair, patient on director of cardiac rehabilitation, all belongings with patient. OPHELIA Lozano at bedside to help transfer patient to hospital bed.
--- NOTE | 2018-11-21 17:35 | NUR ---
Patient in room 315. I have received report from Fawn JACINTO and had the opportunity to ask questions and assume patient care. Patient arrived to room 315and transferred with 2 person assist from bed to wheelchair, oriented to room and call light.
[2018-11-21] MEDS: lactose-reduced food (Ensure Enlive) - 237ml bottle PO SCH ×2 (18:00→19:00)
--- NOTE | 2018-11-21 18:00 | NUR ---
Patient in room MED 315. I have received report from Marta JACINTO and had the opportunity to ask questions and assume patient care.
--- NOTE | 2018-11-21 18:21 | NUR ---
Problems reprioritized. Patient report given, questions answered & plan of care reviewed with Dee JACINTO.
[2018-11-22 02:00] VITALS: BP 96/42
[2018-11-22] MEDS: HYDROcodone/acetaminophen 10/325mg tab PO PRN ×2 (03:12→07:55)
[2018-11-22 05:56] LABS: BASOPHILS % (AUTO) 0.4 % (0-1); EOSINOPHILS # (AUTO) 0.3 X10'3 (0-0.9); EOSINOPHILS % (AUTO) 3.5 % (0-6); HEMATOCRIT 31.4 % (35.0-45.0); HEMOGLOBIN 10.8 g/dl (12.0-16.0); LYMPHOCYTES # (AUTO) 2.5 X10'3 (1.1-4.8); LYMPHOCYTES % (AUTO) 26.2 % (21-51); MEAN CORPUSCULAR HEMOGLOBIN 31.6 PG (27.0-31.0); MEAN CORPUSCULAR HGB CONC 34.6 g/dL (33.0-36.5); MEAN CORPUSCULAR VOLUME 91.5 FL (78-98); MEAN PLATELET VOLUME 8.5 FL (7.4-10.4); MONOCYTES # (AUTO) 0.5 X10'3 (0-0.9); MONOCYTES % (AUTO) 5.6 % (2-12); NEUTROPHILS # (AUTO) 6.1 X10'3 (1.8-7.7); NEUTROPHILS % (AUTO) 64.3 % (42-75); PLATELET COUNT 107 X10'3 (140-440); RED BLOOD COUNT 3.43 X10'6 (4.20-5.60); RED CELL DISTRIBUTION WIDTH 13.1 % (11.5-14.5); WHITE BLOOD COUNT 9.5 X10'3 (4.5-11.0)
--- NOTE | 2018-11-22 05:58 | NUR ---
Pt was noted to have some changes in her monitor, 12 lead EKG done per protocol. VSS. Labs were done as daily order. Report off to day shift.
[2018-11-22 06:00] VITALS: BP 104/41
[2018-11-22 06:00] LABS: ALBUMIN 2.4 G/DL (3.4-5.0); ANION GAP 6 (8-16); BLOOD UREA NITROGEN 13 MG/DL (7-18); BUN/CREATININE RATIO 20.6 (6.6-38.0); CALCIUM 8.3 MG/DL (8.5-10.1); CHLORIDE 108 MMOL/L (99-107); CREATININE 0.63 MG/DL (0.40-0.90); GLUCOSE 97 MG/DL (70-104); MAGNESIUM 2.2 MG/DL (1.5-2.4); POTASSIUM 3.6 MMOL/L (3.5-5.1); SODIUM 140 MMOL/L (135-145); TOTAL CARBON DIOXIDE 26.2 MMOL/L (24-32); eGFR > 90 ML/MIN
--- NOTE | 2018-11-22 06:27 | NUR ---
Problems reprioritized. Patient report given, questions answered & plan of care reviewed with Lilia JACINTO.
[2018-11-22] MEDS ORDERED: magnesium citrate 296ml oral solution PO ONE (06:50)
[2018-11-22] MEDS: potassium Cl 20 mEq SR tablet PO SCH (07:45)
[2018-11-22] MEDS: docusate sod 100mg capsule PO SCH (07:45)
[2018-11-22] MEDS: citalopram 20mg tablet PO SCH (07:45)
[2018-11-22] MEDS: multivitamins, therapeutics tablet PO SCH (07:45)
[2018-11-22] MEDS: aripiprazole 5mg tablet PO SCH (07:45)
[2018-11-22] MEDS: pantoprazole 40mg Tablet.DR PO SCH (07:45)
[2018-11-22] MEDS: aspirin 325mg tablet, delayed-release (Ecotrin) PO SCH (07:46)
[2018-11-22] MEDS: metoprolol tartrate 12.5mg (1/2 tablet) PO SCH (07:48)
[2018-11-22] MEDS: magnesium Cl slow-release 64mg tablet PO SCH (08:00)
[2018-11-22] MEDS: K and/or MAG REPLACEMENT MC SCH (08:00)
[2018-11-22] MEDS: atorvastatin 10mg tablet PO SCH (08:22)
[2018-11-22] MEDS: lactose-reduced food (Ensure Enlive) - 237ml bottle PO SCH ×2 (08:28→13:09)
--- NOTE | 2018-11-22 09:00 | NUR ---
PATIENT'S DAUGHTER PRESENT AT BEDSIDE, INSISTS THAT PATIENT GO TO [facility] INSTEAD OF [facility]. [employer] CH[employer] WORKER MADE AWARE TO CHANGE PLANS FOR DISCHARGE SNF.
--- NOTE | 2018-11-22 09:30 | NUR ---
Student documentation: I have reviewed and agree with all interventions, assessments performed and documented by ADRYAN, STUDENT NURSE.
[2018-11-22 11:30] VITALS: BP 94/44
--- NOTE | 2018-11-22 13:45 | NUR ---
CALLED REPORT TO JANIE INFORMED RECEIVING RN THAT PATIENT WILL HAVE A MIDLINE CHEST INCISION TO REMAIN OPEN TO AIR, THAT REELING OPERATOR TIME IS 1445.
--- NOTE | 2018-11-22 13:58 | NUR ---
reassessment: Pt seen by ANNALISA for written/verbal CABG ed w/ RD contact information provided. Pt d/c today [facility]. Addendum: 11/22/18 at [address] Amended: Links added.
--- NOTE | 2018-11-22 14:00 | NUR ---
PRE[facility]NA WOUND VAC DRESSING REMOVED AND TAKEN DOWN PER WENDY PRINGLE'S VERBAL ORDER TO DC WOUND VAC PRIOR TO PATIENT'S TRANSFER. PATIENT TOLERATED WELL. CHEST INCISION CLEAN DRY AND INTACT, NO S/S OF INFECTION, BRUISING, OR BLEEDING.
--- NOTE | 2018-11-22 15:11 | NUR ---
PATIENT LEFT UNIT WITH [facility] TO GO TO [facility]. ALL BELONGINGS ACCOUNTED FOR AND TAKEN WITH PATIENT. PATIENT'S FAMILY AWARE. PATIENT TAKEN IN WHEELCHAIR BY [facility] STAFF ALERT, ORIENTED, CALM, AND COOPERATIVE, AWARE OF GOING TO [facility].
== END 2018-11-22 15:10 | DRG 233 ==
LOC: SSTAY O 09:57 → MED 3N 15:00 → CICU 2S 11-18 10:39 → MED 3N 11-21 17:40
PROVIDERS: ADMIT Thoracic Surgery (Cardiothoracic Vascular Surgery); ATTEND Thoracic Surgery (Cardiothoracic Vascular Surgery)
PROC: 4A023N7 Measurement of Cardiac Sampling and Pressure, Left Heart, Percutaneous Approach (ICD-10-PCS; 2018-11-17)
PROC: B2111ZZ Fluoroscopy of Multiple Coronary Arteries using Low Osmolar Contrast (ICD-10-PCS; 2018-11-17)
PROC: B2151ZZ Fluoroscopy of Left Heart using Low Osmolar Contrast (ICD-10-PCS; 2018-11-17)
PROC: B3111ZZ Fluoroscopy of Right Brachiocephalic-Subclavian Artery using Low Osmolar Contrast (ICD-10-PCS; 2018-11-17)
PROC: B3121ZZ Fluoroscopy of Left Subclavian Artery using Low Osmolar Contrast (ICD-10-PCS; 2018-11-17)
PROC: B41F1ZZ Fluoroscopy of Right Lower Extremity Arteries using Low Osmolar Contrast (ICD-10-PCS; 2018-11-17)
PROC: 021009W Bypass Coronary Artery, One Artery from Aorta with Autologous Venous Tissue, Open Approach (ICD-10-PCS; 2018-11-18)
PROC: 06BQ4ZZ Excision of Left Saphenous Vein, Percutaneous Endoscopic Approach (ICD-10-PCS; 2018-11-18)
PROC: 5A1221Z Performance of Cardiac Output, Continuous (ICD-10-PCS; 2018-11-18)
PROC: B24BZZ4 Ultrasonography of Heart with Aorta, Transesophageal (ICD-10-PCS; 2018-11-18)
PROC: 4A133B3 Monitoring of Arterial Pressure, Pulmonary, Percutaneous Approach (ICD-10-PCS; 2018-11-18)
PROC: 02HP32Z Insertion of Monitoring Device into Pulmonary Trunk, Percutaneous Approach (ICD-10-PCS; 2018-11-18)
PROC: 05HM33Z Insertion of Infusion Device into Right Internal Jugular Vein, Percutaneous Approach (ICD-10-PCS; 2018-11-18)
PROC: B543ZZA Ultrasonography of Right Jugular Veins, Guidance (ICD-10-PCS; 2018-11-18)
PROC: 02L70ZK Occlusion of Left Atrial Appendage, Open Approach (ICD-10-PCS; 2018-11-18)
PROC: 02100Z9 Bypass Coronary Artery, One Artery from Left Internal Mammary, Open Approach (ICD-10-PCS; principal; 2018-11-18 09:50)
DX: I25.10 Atherosclerotic heart disease of native coronary artery without angina pectoris (principal); I50.33 Acute on chronic diastolic (congestive) heart failure; I69.354 Hemiplegia and hemiparesis following cerebral infarction affecting left non-dominant side; D62 Acute posthemorrhagic anemia; E11.9 Type 2 diabetes mellitus without complications; F01.50 Vascular dementia, unspecified severity, without behavioral disturbance, psychotic disturbance, mood disturbance, and anxiety; I11.0 Hypertensive heart disease with heart failure; F12.90 Cannabis use, unspecified, uncomplicated; F32.9 Major depressive disorder, single episode, unspecified; K21.9 Gastro-esophageal reflux disease without esophagitis; Z96.641 Presence of right artificial hip joint; G89.29 Other chronic pain; M19.90 Unspecified osteoarthritis, unspecified site; M48.07 Spinal stenosis, lumbosacral region; Z90.49 Acquired absence of other specified parts of digestive tract; Z78.1 Physical restraint status; Z79.82 Long term (current) use of aspirin; Z79.899 Other long term (current) drug therapy; Z79.4 Long term (current) use of insulin; Z88.6 Allergy status to analgesic agent; Z91.041 Radiographic dye allergy status; I69.311 Memory deficit following cerebral infarction
CPT/HCPCS: 0232T; 93312; 93325; 93458; 36415; 36600; 71045; 71046; 80048; 80053; 82330; 82435; 82803; 82947; 82948; 83036; 83735; 84100; 84132; 84295; 85018; 85025; 85027; 85347; 85384; 85610; 85730; 86885; 86900; 86901; 86920; 87070; 93005; 93880; 93922; 93971; 94002; 94003; 94010; 94668; 94760; 97110; 97116; 97162; 97530; 99152; 99153; A4620; A6255; A6257; A6258; A6402; A6449; A7000; A7048; C1751; C1760; C1769; C9113; G0378; J0131; J0690; J0780; J1644; J1815; J2001; J2060; J2150; J2250; J2270; J2370; J2405; J2440; J2704; J2720; J2795; J2930; J3010; J3370; J3475; J3480; J3490; J7030; J7060; J7120; P9047; Q0163; Q9967